=== PATIENT | female | born 1970 | race Caucasian/White ===

== ENCOUNTER → 2017-03-29 | Outpatient (CLI) | payer BC | LOC: GMATM 15:29 | PROVIDERS: ATTEND Nurse Practitioner Family | DX: N39.0 Urinary tract infection, site not specified (principal) ==

== ENCOUNTER → 2018-02-26 | Outpatient (CLI) | payer BC ==
--- NOTE | 2018-02-27 16:14 | MAM ---
EXAM DESCRIPTION: 3D Screening BILATERAL : Digital Mammography. CLINICAL HISTORY: 47 years Female ANNUAL SCREENING . No complaints. No personal history of breast cancer. Mother with breast cancer. Childbirth. Premenopausal. No HRT. Lifetime risk of developing breast cancer (Tyrer-Cuzick model)(%): 16.7. COMPARISON: 2-D digital screening bilateral mammography 11/27/2015.. TECHNIQUE: Bilateral CC and MLO projection full-field images, digital tomosynthesis mammographic technique. Bilateral digital 2-D full-field MLO images. CAD not available for tomosynthesis or 2-D images. FINDINGS: The breast parenchymal density pattern is: Heterogeneously dense breast tissue, which may obscure small masses. No skin thickening or nipple retraction. Bilateral axillary lymph nodes. Group of microcalcifications in the lateral aspect of the middle third of the left breast, 3:30 position, not well seen on the prior study. Also microcalcifications abutting the retroareolar tissues and also approximately 8:30 clock position in the anterior to middle third. These are associated with dense fibroglandular tissues. No new focal, stellate mass or density, focal asymmetry , and no suspicious microcalcifications right breast. IMPRESSION: BI-RADS CATEGORY: 0 - INCOMPLETE- Need additional imaging evaluation. FOLLOW-UP: Recall for additional imaging: Orthogonal full-field tomosynthesis left breast with orthogonal 2-D spot magnification images of the regions of interest. Targeted left breast ultrasound to follow if indicated by diagnostic images.. Written communication concerning the IMPRESSION and Follow-up, will be mailed to the patient and referring health care provider. Electronically signed by: Len Mueller MD 02/27/2018 4:13 PM [facility]
== END ==
LOC: MAMMO 08:30
PROVIDERS: ATTEND Obstetrics & Gynecology
DX: Z12.31 Encounter for screening mammogram for malignant neoplasm of breast (principal)

== ENCOUNTER → 2018-03-12 | Outpatient (CLI) | payer BC ==
--- NOTE | 2018-03-12 12:11 | US ---
EXAM DESCRIPTION: Breast,Left: Ultrasound CLINICAL HISTORY: 47 yearsFemaleABNORMAL MAMMOGRAM COMPARISON: Digital screening tomosynthesis bilateral breasts 02/26/2018. TECHNIQUE: Transcutaneous scanning of the left breast utilizing mac-scale and Doppler modes. Scanning performed by the manager labor delivery and Dr. Mueller. FINDINGS: Scanning of the lateral and upper outer quadrant anterior middle third left breast. The breast is almost completely fibroglandular tissue with minimal fatty echotexture. Scanning from 2:00 to 4:00. No dominant solid mass or distinct cyst. No parenchymal edema or large calcifications. No overlying skin changes. No abnormal vascularity. IMPRESSION: . BI-RADS CATEGORY: 3 - PROBABLY BENIGN. Management: Short interval (6-month) follow-up diagnostic digital left breast mammography and targeted left breast ultrasound approximately August 2018. The FINDINGS and the FOLLOW-UP plan were reviewed in person with the patient after the examination. Written communication explaining the IMPRESSION and FOLLOW-UP will be mailed to the patient and referring care provider. Electronically signed by: Len Mueller MD 03/12/2018 12:08 PM [facility]
--- NOTE | 2018-03-12 20:33 | MAM ---
EXAM DESCRIPTION: 3D Diagnostic, Left: Digital Mammography CLINICAL HISTORY: 47 yearsFemaleABNORMAL MAMMO . Multiple microcalcifications left breast possibly abnormal.. COMPARISON: Bilateral screening digital breast tomosynthesis 02/26/2018.. No prior reports available.. TECHNIQUE: Left breast LM projection full-field images, digital mammographic tomosynthesis technique. Left breast digital spot magnification LM and CC projections. CAD not utilized. FINDINGS: The breast parenchymal density pattern is: Heterogeneously dense breast tissue, which may obscure small masses. No skin thickening or nipple retraction again noted are numerous heterogeneous microcalcifications in solitary orientation and also groups. One group which may be associated with a soft tissue mass is approximately the 3:30 to 4:00 position left breast, approximately 6 cm from the nipple. Another group of microcalcifications at the 3:00 position 4 cm from the nipple. Ultrasound: Scanning of the lateral and upper outer quadrant anterior middle third left breast. The breast is almost completely fibroglandular tissue with minimal fatty echotexture. Scanning from 2:00 to 4:00. No dominant solid mass or distinct cyst. No parenchymal edema or large calcifications. No overlying skin changes. No abnormal vascularity. IMPRESSION: BI-RADS CATEGORY: 3 - PROBABLY BENIGN. Management: Short interval (6-month) digital diagnostic mammography left breast and targeted left breast ultrasound. The FINDINGS and the FOLLOW-UP plan were reviewed in person with the patient after the examination. Written communication explaining the IMPRESSION and FOLLOW-UP will be mailed to the patient and referring care provider. Electronically signed by: Len Mueller MD 03/12/2018 8:30 PM [facility]
== END ==
LOC: MAMMO 07:54
PROVIDERS: ATTEND Obstetrics & Gynecology
DX: R92.8 Other abnormal and inconclusive findings on diagnostic imaging of breast (principal)
CPT/HCPCS: 76641; 77065; G0279